=== PATIENT | male | born 1955 | race Hispanic/Latino ===

== ENCOUNTER 2017-05-02 14:25 | Inpatient (IN) | payer OTHER ==
[~2017-05-02 14:25] MED LIST: ISOVUE-370 76%-LOCM 1 ML ONE
[2017-05-02 15:12] LABS: #Basophils 0.1 thou/uL (0.0-0.2); #Eosinphils 0.1 thou/uL (0.0-0.7); #Lymphocytes 1.8 thou/uL (1.20-3.40); #Monocytes 1.3 thou/uL (0.11-0.59); #Neutrophils 15.3 thou/uL (1.40-6.50); %Basophils 0.4 % (0.0-1.0); %Eosinophils 0.7 % (0.0-10.0); %Lymphocytes 9.7 % (21.0-51.0); Hematocrit 46.8 % (42.0-52.0); Mean Platelet Volume 8.7 fL (7.4-10.4); Red Blood Cell (RBC) Count 4.86 mill/uL (4.70-6.10); White Blood Cell (WBC) Count 18.6 thou/uL (4.8-10.8)
[2017-05-02 15:31] LABS: ALT (SGPT) 17 U/L (8-55); AST (SGOT) 24 U/L (5-34); Alkaline Phosphatase 100 U/L (40-150); Anion Gap 15 mmol/L (10-20); BUN (Urea Nitrogen) 13 mg/dL (8.4-25.7); Bilirubin, Total 0.8 mg/dL (0.2-1.2); Calc. Creatinine Clearance 0 mL/min (70-130); Calcium 9.2 mg/dL (7.8-10.44); Carbon Dioxide 24 mmol/L (23-31); Chloride 101 mmol/L (98-107); Estimated GFR-MDRD 74
[2017-05-02] MEDS ORDERED: Adacel (T-DAP) 0.5 ML VIAL ONE (15:34)
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
[2017-05-02] MEDS ORDERED: Lidocaine 1% (PF) 30 ML VIAL ONE (16:24)
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
[2017-05-02] MEDS ORDERED: Ondansetron HCl/PF 4 MG/2 ML Vial IVP PRN (17:55)
[2017-05-02] MEDS ORDERED: Dextrose 50% Abboject 50 ML SYRINGE SLOW IVP PRN (17:55)
[2017-05-02] MEDS ORDERED: Dextrose 5% in Water 1,000 ML IV PRN (17:55)
[2017-05-02] MEDS ORDERED: Promethazine HCl 25 MG/ML VIAL IM PRN (17:55)
[2017-05-02] MEDS ORDERED: Rib Fracture Protocol PO SCH (17:55)
[2017-05-02] MEDS ORDERED: Ondansetron ODT 4 MG TAB PO PRN (17:55)
[2017-05-02] MEDS ORDERED: Cyclobenzaprine 10 MG TAB PO PRN (19:00)
[2017-05-02] MEDS: Sodium Chloride 0.9% 1,000 ML IV SCH (19:23)
[2017-05-02] MEDS: Famotidine 20 MG TAB PO SCH (20:38)
[2017-05-02] MEDS: Gabapentin 300 MG CAP PO SCH (20:38)
[2017-05-02] MEDS: Insulin Regular 300 UNITS/3 ML VIAL SC PRN (21:33)
[2017-05-03] MEDS: traMADol HCl 50 MG TAB PO SCH ×4 (00:01→17:21)
[2017-05-03] MEDS: Ibuprofen 800 MG TAB PO SCH ×4 (00:01→17:20)
[2017-05-03] MEDS: Acetaminophen 500 MG TAB PO SCH ×4 (00:01→17:22)
[2017-05-03] MEDS: Sodium Chloride 0.9% 1,000 ML IV SCH (00:06)
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
[2017-05-03 02:35] VITALS: BMI 30.7
[2017-05-03 05:52] LABS: #Basophils 0.1 thou/uL (0.0-0.2); #Eosinphils 0.1 thou/uL (0.0-0.7); #Lymphocytes 1.8 thou/uL (1.20-3.40); #Monocytes 1.2 thou/uL (0.11-0.59); #Neutrophils 5.4 thou/uL (1.40-6.50); %Basophils 0.6 % (0.0-1.0); %Eosinophils 0.8 % (0.0-10.0); %Lymphocytes 21.5 % (21.0-51.0); %Monocytes 13.6 % (0.0-10.0); Hematocrit 38.9 % (42.0-52.0); Red Blood Cell (RBC) Count 4.01 mill/uL (4.70-6.10); White Blood Cell (WBC) Count 8.5 thou/uL (4.8-10.8)
[2017-05-03 06:05] LABS: Anion Gap 10 mmol/L (10-20); BUN (Urea Nitrogen) 16 mg/dL (8.4-25.7); Calc. Creatinine Clearance 115 mL/min (70-130); Calcium 8.2 mg/dL (7.8-10.44); Carbon Dioxide 27 mmol/L (23-31); Chloride 103 mmol/L (98-107); Estimated GFR-MDRD 81
[2017-05-03] MEDS: Insulin Regular 300 UNITS/3 ML VIAL SC PRN ×4 (06:08→20:52)
[2017-05-03 06:38] LABS: Hemoglobin A1c 12.1 % (4.0-6.0)
[2017-05-03] MEDS: Famotidine 20 MG TAB PO SCH ×2 (08:03→20:13)
[2017-05-03] MEDS: Gabapentin 300 MG CAP PO SCH ×3 (08:03→20:13)
--- NOTE | 2017-05-03 08:04 | RAD ---
CHEST 1 VIEW: HISTORY: Chest tube. Followup. COMPARISON: 05/02/17. FINDINGS: Cardiac silhouette is magnified by projection. Pulmonary vasculature remains engorged. Left thorac ostomy tube remains in lace without recurrent pneumothorax apparent. Mild patchy bilateral airspace disease is stable. Mediastinum is midline. IMPRESSION: Stable radiographic appearance of the chest. POS: [facility]
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
[2017-05-03] MEDS ORDERED: FLU VACC QS2017-18 36 mo. & older 0.5 ML SYRINGE IM ONE (09:00)
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
[2017-05-04] MEDS: traMADol HCl 50 MG TAB PO SCH ×5 (00:26→23:44)
[2017-05-04] MEDS: Acetaminophen 500 MG TAB PO SCH ×5 (00:26→23:43)
[2017-05-04] MEDS: Ibuprofen 800 MG TAB PO SCH ×5 (00:26→23:43)
[2017-05-04] MEDS: Insulin Regular 300 UNITS/3 ML VIAL SC PRN ×4 (05:46→20:23)
--- NOTE | 2017-05-04 07:56 | RAD ---
CHEST 1 VIEW: HISTORY: Chest tube. Followup. COMPARISON: 05/03/17. FINDINGS: Cardiac silhouette remains magnified by projection. Pulmonary vasculature is less engorged than on the prior study. Patchy bibasilar atelectasis is improved. Mediastinum is midline. Left thoracost selma tube remains in place. Left rib fractures are now better visualized. No recurrent pneumothorax is apparent. Left chest wall gas is stable. IMPRESSION: Improved aeration of the lungs. POS: [facility]
[2017-05-04] MEDS: Gabapentin 300 MG CAP PO SCH ×3 (08:14→20:00)
[2017-05-04] MEDS: Famotidine 20 MG TAB PO SCH ×2 (08:14→20:00)
[2017-05-04] MEDS: Senokot S 8.6-50 MG TAB PO SCH (20:00)
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
[2017-05-05] MEDS: Acetaminophen 500 MG TAB PO SCH ×4 (05:13→23:50)
[2017-05-05] MEDS: Ibuprofen 800 MG TAB PO SCH ×4 (05:13→23:50)
[2017-05-05] MEDS: traMADol HCl 50 MG TAB PO SCH ×4 (05:13→23:51)
[2017-05-05] MEDS: Insulin Regular 300 UNITS/3 ML VIAL SC PRN ×4 (06:43→21:22)
[2017-05-05] MEDS: Gabapentin 300 MG CAP PO SCH ×3 (08:23→21:11)
[2017-05-05] MEDS: Polyethylene Glycol 3350 17 GM Packet PO SCH (08:24)
[2017-05-05] MEDS: Famotidine 20 MG TAB PO SCH ×2 (08:24→21:11)
[2017-05-05] MEDS: Senokot S 8.6-50 MG TAB PO SCH ×2 (08:24→21:11)
--- NOTE | 2017-05-05 08:24 | RAD ---
AP VIEW OF CHEST: Date: 05/05/17 INDICATION: History of chest tube placement. COMPARISON: Prior exam dated 05/04/17. IMPRESSION: Since the comparison study, the left-sided thoracostomy tube has been removed. Left basilar atelecta sis and left-sided pleural effusion remains. Left-sided rib fractures and subcutaneous emphysema is stable. No definite pneumothorax is evident. Mild subsegmental atelectasis within the right mid lung is stable. POS: [facility]
[2017-05-05] MEDS: Lisinopril 20 MG TAB PO SCH (08:35)
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
[2017-05-06] MEDS: traMADol HCl 50 MG TAB PO SCH ×2 (05:39→12:23)
[2017-05-06] MEDS: Acetaminophen 500 MG TAB PO SCH ×2 (05:39→12:23)
[2017-05-06] MEDS: Ibuprofen 800 MG TAB PO SCH ×2 (05:41→12:23)
[2017-05-06] MEDS: Insulin Regular 300 UNITS/3 ML VIAL SC PRN (06:07)
--- NOTE | 2017-05-06 08:13 | RAD ---
CHEST 1 VIEW: Date: 05/06/17 HISTORY: Chest tube. COMPARISON: Chest 1 view prior day. FINDINGS: Subcutaneous emphysema left hemithorax is decreased. Left-sided rib fractures are similar. No furthe r displacement. Small left effusion. Linear opacities left lung base. No pneumothorax. IMPRESSION: Slight interval decrease of the left chest wall subcutaneous emphysema. POS: [facility]
[2017-05-06 08:17] VITALS: TEMP 98
[2017-05-06] MEDS: Gabapentin 300 MG CAP PO SCH (08:21)
[2017-05-06] MEDS: Lisinopril 20 MG TAB PO SCH (08:21)
[2017-05-06] MEDS: Senokot S 8.6-50 MG TAB PO SCH (08:21)
[2017-05-06] MEDS: Polyethylene Glycol 3350 17 GM Packet PO SCH (08:29)
[2017-05-06 09:08] VITALS: BP 124/73
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
== END 2017-05-06 12:07 | disposition home or self-care (01) | DRG 200 ==
LOC: ERS 14:25 → SURG A 16:01
PROVIDERS: ADMIT Surgery; ATTEND Surgery
PROC: 0W9B00Z Drainage of Left Pleural Cavity with Drainage Device, Open Approach (ICD-10-PCS; principal; 2017-05-02)
DX: S27.2XXA Traumatic hemopneumothorax, initial encounter (principal); J90 Pleural effusion, not elsewhere classified; J98.11 Atelectasis; S22.42XA Multiple fractures of ribs, left side, initial encounter for closed fracture; I10 Essential (primary) hypertension; E11.9 Type 2 diabetes mellitus without complications; Z72.0 Tobacco use; G89.11 Acute pain due to trauma; T79.7XXA Traumatic subcutaneous emphysema, initial encounter
CPT/HCPCS: 32551; 36415; 36416; 70450; 71010; 71260; 72125; 74177; 80048; 80053; 83036; 85025; 90471; 90715; 93005; 94640; 96361; 96374; G0390; G8978-GP-CJ; G8979-GP-CJ; G8980-GP-CJ; G8987-GO-CI; G8988-GO-CI; G8989-GO-CI; J0360; J1815; J2001; J2270; J7620

== ENCOUNTER 2017-05-20 12:33 | Outpatient (CLI) | payer OTHER ==
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
== END 2017-05-20 12:34 | disposition home or self-care (01) ==
LOC: RAD 12:33
PROVIDERS: ATTEND Physician Assistant
DX: S27.2XXA Traumatic hemopneumothorax, initial encounter (principal); S22.49XS Multiple fractures of ribs, unspecified side, sequela; J90 Pleural effusion, not elsewhere classified; J98.11 Atelectasis
CPT/HCPCS: 71020

== ENCOUNTER 2017-05-27 08:33 | Inpatient (IN) | payer OTHER ==
[2017-05-26 15:25] VITALS: BMI 30.7
[2017-05-27 09:56] LABS: Hematocrit 47.1 % (42.0-52.0); Mean Platelet Volume 7.8 fL (7.4-10.4); Red Blood Cell (RBC) Count 4.86 mill/uL (4.70-6.10)
[2017-05-27 10:11] LABS: Anion Gap 14 mmol/L (10-20); BUN (Urea Nitrogen) 14 mg/dL (8.4-25.7); Calc. Creatinine Clearance 139 mL/min (70-130); Calcium 10.1 mg/dL (7.8-10.44); Carbon Dioxide 25 mmol/L (23-31); Chloride 102 mmol/L (98-107); Estimated GFR-MDRD Greater than 90
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
[2017-05-27] MEDS ORDERED: CEFAZOLIN/Water 2 GM/20 ML SYRINGE ONE (12:52)
[2017-05-27] MEDS ORDERED: Fentanyl 100 MCG/2 ML VIAL ONE ×2 (13:51→15:46)
[2017-05-27] MEDS ORDERED: Ketorolac Tromethamine 30 MG/ML VIAL ONE (14:08)
[2017-05-27] MEDS ORDERED: Dexamethasone 20 MG/5 ML VIAL ONE (14:08)
[2017-05-27] MEDS ORDERED: Lidocaine 2% MPF 10 ML AMP (For Epidural Use) ONE (14:08)
[2017-05-27] MEDS ORDERED: Ondansetron HCl/PF 4 MG/2 ML Vial ONE (14:08)
[2017-05-27] MEDS ORDERED: Glycopyrrolate 0.2 MG/ML 5 ML SYRINGE ONE (14:08)
[2017-05-27] MEDS ORDERED: Propofol 200 MG/20 ML VIAL ONE (14:08)
[2017-05-27] MEDS ORDERED: Ondansetron HCl/PF 4 MG/2 ML Vial IVP PRN ×2 (15:15→16:17)
[2017-05-27] MEDS ORDERED: Promethazine HCl 25 MG/ML VIAL IM PRN (15:15)
[2017-05-27] MEDS ORDERED: Promethazine HCl 25 MG/ML VIAL SLOW IVP PRN (15:15)
--- NOTE | 2017-05-27 15:50 | OP ---
PREOPERATIVE DIAGNOSIS: Retained left hemothorax. POSTOPERATIVE DIAGNOSIS: Retained left hemothorax. PROCEDURE: Thoracoscopy with evacuation of hemothorax. SURGEON: Chay Gallardo M.D. ANESTHESIA: General. ESTIMATED BLOOD LOSS: Minimal. DESCRIPTION OF THE PROCEDURE: After adequate anesthesia had been obtained, the patient was placed i n the right lateral decubitus position. Lung was decompressed and 10 trocar was then placed after a dmitting a Debra clamp into the chest. Chest was inspected and there was a small residual hemothora x at the base along the diaphragm. The upper lobe had chronic adhesions to the chest wall and these were not mobilized. The chest was irrigated with about 400 mL of saline and then suctioned out and there was no residual blood at that point. A #32 right angle chest tube was placed and the port si kwadwo were closed. The patient tolerated the procedure.
[2017-05-27] MEDS ORDERED: Fentanyl 100 MCG/2 ML VIAL SLOW IVP PRN (16:17)
[2017-05-27] MEDS ORDERED: HYDROcodone/Acetaminophen 5/325 mg Tablet PO PRN (16:17)
[2017-05-27] MEDS: Fentanyl 100 MCG/2 ML VIAL SLOW IVP PRN ×2 (16:56→17:04)
[2017-05-27] MEDS: Sodium Chloride 0.9% 1,000 ML IV SCH (17:26)
--- NOTE | 2017-05-27 18:34 | RAD ---
CHEST ONE VIEW: 05/27/17 HISTORY: Thoracotomy. COMPARISON: Chest two view same day. FINDINGS: Multiple left sided rib fractures. Small left lateral pneumothorax. Chest tube is in place. There are atelectatic changes in the right lower lobe. IMPRESSION: Interval placement of a thoracostomy tube with tube and side port within the left lower hemithorax. POS: [facility]
[2017-05-27] MEDS: Ketorolac Tromethamine 30 MG/ML VIAL IVP SCH (18:45)
[2017-05-27] MEDS: metFORMIN 500 MG TAB PO SCH ×2 (19:37→20:50)
[2017-05-27] MEDS: HYDROcodone/Acetaminophen 5/325 mg Tablet PO PRN (20:24)
[2017-05-27] MEDS: Lisinopril 10 MG TAB PO SCH (20:25)
[2017-05-27] MEDS: Gabapentin 300 MG CAP PO SCH (20:25)
[2017-05-27] MEDS: CEFAZOLIN/Water 2 GM/20 ML SYRINGE SLOW IVP SCH (20:26)
[2017-05-27] MEDS: Enoxaparin Sodium 40 MG/0.4 ML SYRINGE SC SCH (20:26)
[2017-05-27] MEDS: Insulin Regular 300 UNITS/3 ML VIAL SC PRN (20:53)
[2017-05-27] MEDS ORDERED: FLU VACC QS2017-18 36 mo. & older 0.5 ML SYRINGE IM ONE (21:00)
[2017-05-28] MEDS: Ketorolac Tromethamine 30 MG/ML VIAL IVP SCH ×5 (00:12→23:20)
[2017-05-28 04:29] LABS: #Basophils 0.1 thou/uL (0.0-0.2); #Eosinphils 0.1 thou/uL (0.0-0.7); #Lymphocytes 1.5 thou/uL (1.20-3.40); #Monocytes 1.3 thou/uL (0.11-0.59); #Neutrophils 6.8 thou/uL (1.40-6.50); %Basophils 0.6 % (0.0-1.0); %Eosinophils 0.6 % (0.0-10.0); %Lymphocytes 15.5 % (21.0-51.0); %Monocytes 13.4 % (0.0-10.0); Hematocrit 39.3 % (42.0-52.0); Mean Platelet Volume 8.4 fL (7.4-10.4); Red Blood Cell (RBC) Count 4.07 mill/uL (4.70-6.10); White Blood Cell (WBC) Count 9.7 thou/uL (4.8-10.8)
[2017-05-28 04:51] LABS: Anion Gap 11 mmol/L (10-20); BUN (Urea Nitrogen) 20 mg/dL (8.4-25.7); Calc. Creatinine Clearance 129 mL/min (70-130); Calcium 9.1 mg/dL (7.8-10.44); Carbon Dioxide 28 mmol/L (23-31); Chloride 102 mmol/L (98-107); Estimated GFR-MDRD Greater than 90
[2017-05-28] MEDS: CEFAZOLIN/Water 2 GM/20 ML SYRINGE SLOW IVP SCH ×3 (05:46→20:00)
[2017-05-28] MEDS: Lisinopril 10 MG TAB PO SCH ×2 (08:12→20:00)
[2017-05-28] MEDS: Amlodipine 5 MG TAB PO SCH (08:12)
[2017-05-28] MEDS: metFORMIN 500 MG TAB PO SCH ×2 (08:12→16:52)
[2017-05-28] MEDS: Gabapentin 300 MG CAP PO SCH ×3 (08:13→20:00)
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
[2017-05-28] MEDS: Sodium Chloride 0.9% 1,000 ML IV SCH (12:28)
[2017-05-28] MEDS: HYDROcodone/Acetaminophen 5/325 mg Tablet PO PRN (12:32)
[2017-05-28] MEDS: Insulin Regular 300 UNITS/3 ML VIAL SC PRN ×2 (12:36→16:52)
[2017-05-28] MEDS: Enoxaparin Sodium 40 MG/0.4 ML SYRINGE SC SCH (20:07)
[2017-05-29] MEDS: CEFAZOLIN/Water 2 GM/20 ML SYRINGE SLOW IVP SCH (05:26)
[2017-05-29] MEDS: Ketorolac Tromethamine 30 MG/ML VIAL IVP SCH (05:26)
[2017-05-29] MEDS: Amlodipine 5 MG TAB PO SCH (08:13)
[2017-05-29] MEDS: metFORMIN 500 MG TAB PO SCH (08:13)
[2017-05-29] MEDS: Gabapentin 300 MG CAP PO SCH (08:13)
[2017-05-29 08:14] VITALS: BP 159/74
[2017-05-29] MEDS: Lisinopril 10 MG TAB PO SCH (08:14)
[2017-05-29 08:21] VITALS: TEMP 98.3
--- NOTE | 2017-05-29 09:38 | RAD ---
PORTABLE AP CHEST X-RAY: 05/29/2017 HISTORY: Post thoracotomy. Follow-up evaluation. FINDINGS: Compared to study on 05/28/2017. Cardiac silhouette and pulmonary vasculature are within normal limits. Again noted are what appear to be left-sided rib fractures. The left-sided thoracostomy tube has been removed. No obvious pneu mothorax is seen. Increased linear densities are seen at each lung base, probably related to atelec tasis. There is no other interval change from the prior study. IMPRESSION: 1. Stable left-sided rib fractures with stable pleural-based density at the left lung base adjacent to the region of the rib fractures with associated atelectasis. 2. Interval removal of the left-sided thoracostomy tube. 3. Atelectasis at right lung base. POS: [facility]
--- NOTE | 2017-05-29 09:59 | DIS ---
HOSPITAL COURSE: The patient was admitted for left thoracoscopy which was performed. Chest tube wa s minimal for the next 2 days. The tube was removed and he needs to be discharged home to resume hi s lisinopril and metformin as well as prescription for tramadol. He is to follow up with me in 2 to 3 weeks and he still needs to obtain a family practitioner for his diabetes management.
== END 2017-05-29 08:05 | disposition home or self-care (01) | DRG 168 ==
LOC: SURG A 08:33
PROVIDERS: ADMIT Thoracic Surgery (Cardiothoracic Vascular Surgery); ATTEND Thoracic Surgery (Cardiothoracic Vascular Surgery)
PROC: 0W9B40Z Drainage of Left Pleural Cavity with Drainage Device, Percutaneous Endoscopic Approach (ICD-10-PCS; principal; 2017-05-27)
DX: J94.2 Hemothorax (principal); I10 Essential (primary) hypertension; E11.9 Type 2 diabetes mellitus without complications
CPT/HCPCS: 36415; 36416; 71010; 71020; 80048; 85025; 85027; J1100; J1650; J1885; J2001; J2405; J2704; J3010

== ENCOUNTER 2017-06-17 13:13 | Outpatient (CLI) | payer OTHER ==
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
== END 2017-06-17 13:14 | disposition home or self-care (01) ==
LOC: RAD 13:13
PROVIDERS: ATTEND Thoracic Surgery (Cardiothoracic Vascular Surgery)
DX: J94.2 Hemothorax (principal); S22.42XA Multiple fractures of ribs, left side, initial encounter for closed fracture
CPT/HCPCS: 71020

== ENCOUNTER 2017-11-12 05:30 | Inpatient (IN) | payer SELFPAY ==
[2017-11-12] MEDS ORDERED: Calcium Chloride 1 GM/10 ML Abboject SYRINGE ONE (05:57)
[2017-11-12] MEDS ORDERED: Sodium Bicarb 50 MEQ/50 ML Abboject 8.4% SYRINGE ONE ×2 (05:57→13:10)
[2017-11-12] MEDS ORDERED: Dextrose 50% Abboject 50 ML SYRINGE ONE (05:57)
[2017-11-12] MEDS ORDERED: Insulin Regular 300 UNITS/3 ML VIAL ONE (05:57)
[2017-11-12] MEDS ORDERED: Dextrose 50% Abboject 50 ML SYRINGE SLOW IVP PRN ×2 (06:17→09:16)
[2017-11-12] MEDS ORDERED: Dextrose 5% in Water 1,000 ML IV PRN ×2 (06:17→09:16)
[2017-11-12] MEDS ORDERED: HumaLOG 300 UNITS/3 ML VIAL SC PRN ×2 (06:17→09:16)
[2017-11-12 06:20] LABS: Mean Corpuscular HGB CONC 34.1 g/dL (32.0-36.0); Mean Corpuscular Hemoglobin 32.2 pg (27.0-31.0); Mean Corpuscular Volume 94.4 fl (80.0-94.0); Mean Platelet Volume 9.2 fL (7.4-10.4); Platelet Count 329 thou/uL (130-400); Red Blood Cell (RBC) Count 4.03 mill/uL (4.70-6.10); White Blood Cell (WBC) Count 14.6 thou/uL (4.8-10.8)
[2017-11-12 06:28] LABS: CKMB 6.1 ng/mL (0-6.6); Troponin I 0.028 ng/mL (< 0.028)
[2017-11-12 06:36] LABS: Band 4 % (5-11); Lymphocytes 4 % (21-51); MDiff Complete? YES; Monocytes 11 % (0-10); Neutrophil 81 % (42-75)
[2017-11-12 06:43] LABS: Bilirubin Negative (Negative); Blood, Urine Moderate (Negative); Clarity CLEAR (Clear); Glucose, Urine (Dipstick) 250 mg/dL (Negative); Leukocyte Negative (Negative); Nitrite Negative (Negative); Protein, Urine (Dipstick) Negative (Neg-Trace); Specific Gravity, Urine 1.012 (1.002-1.036); Urobilinogen 0.2 mg/dL (0.2-1.0); pH, Urine 5.5 (5.0-9.0)
[2017-11-12 06:44] LABS: BUN (Urea Nitrogen) 186 mg/dL (8.4-25.7)
[2017-11-12] MEDS ORDERED: Piperacillin/Tazobactam 4.5 GM in Sodium Chloride 0.9% 100 ML IVPB SCH (06:45)
[2017-11-12] MEDS ORDERED: Lidocaine 1% w/Epinephrine 1:100K 20 ML VIAL ONE (06:48)
[2017-11-12 07:07] LABS: ALT (SGPT) 16 U/L (8-55); AST (SGOT) 15 U/L (5-34); Albumin 3.7 g/dL (3.4-4.8); Alkaline Phosphatase 70 U/L (40-150); Bilirubin, Total 0.3 mg/dL (0.2-1.2); Calc. Creatinine Clearance 0 mL/min (70-130); Calcium 8.7 mg/dL (7.8-10.44); Chloride 91 mmol/L (98-107); Estimated GFR-MDRD 2; Glucose 279 mg/dL (80-115); Lipase 34 U/L (8-78); Protein, Total 6.7 g/dL (5.8-8.1); Sodium 133 mmol/L (136-145)
[2017-11-12 07:12] LABS: Carbon Dioxide Less than 8 mmol/L (23-31); Potassium 9.2 mmol/L (3.5-5.1)
[2017-11-12 07:15] LABS: Bacteria/HPF None Seen HPF (None Seen); Hyaline Casts/LPF 0-3 HYALINE CAST LPF (0-3 Hyaline); Pathc Cast-AUWi Flag 0.14 (0-2.49); Squamous Epithelial None Seen HPF (0-3); WBC/HPF 0-3 HPF (0-3); Yeast-AUWi Flag 15.9 (0-25.0)
[2017-11-12 08:13] LABS: HBSAg Index 0.21 S/CO (0-0.99); Hep B Surf Ag Non-Reactive S/CO (NonReactive)
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
--- NOTE | 2017-11-12 08:47 | OP ---
PREOPERATIVE DIAGNOSES: Acute renal failure, hyperkalemia, in need of emergent hemodialysis catheter . POSTOPERATIVE DIAGNOSES: Acute renal failure, hyperkalemia, in need of emergent hemodialysis cathete r. PROCEDURE PERFORMED: Right femoral Trialysis catheter. SURGEON: Dr. Zach Marr. ANESTHESIA: 1% Xylocaine. DESCRIPTION OF PROCEDURE: At the patient's bedside in the emergency room, his right groin was clippe d of hair, prepared with ChloraPrep, draped in routine fashion. Seldinger technique used to place a Trialysis catheter placing the J-wire into the femoral vein, placing a smaller and medium sized dila tors and then removed and distal port of the Trialysis catheter placed with J-wire into the femoral v ein. J-wire removed. Catheter secured with 2 interrupted sutures of 3-0 silk. Sterile dressing quincy lied. Each port aspirated blood and flushed with saline solution.
--- NOTE | 2017-11-12 09:08 | RAD ---
CHEST ONE VIEW: History: Chest surgery. Follow up. Comparison: 05-29-17 FINDINGS: Cardiac silhouette is magnified by projection. Pulmonary vasculature remains upper limits of normal. Mediastinum is midline. No confluent airspace consolidation or evidence of pneumothorax. Rib fracture s are again demonstrated. IMPRESSION: Stable post-traumatic appearance of the chest. POS: [facility]
[2017-11-12] MEDS ORDERED: Acetaminophen 500 MG TAB PO PRN (09:16)
[2017-11-12] MEDS ORDERED: Ondansetron HCl/PF 4 MG/2 ML Vial IVP PRN (09:16)
[2017-11-12] MEDS ORDERED: Ondansetron ODT 4 MG TAB PO PRN (09:16)
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
[2017-11-12 10:26] VITALS: BMI 35.2
[2017-11-12 10:27] LABS: Lactic Acid 3.1 mmol/L (0.5-2.2)
[2017-11-12] MEDS ORDERED: Prevnar 13-Val Conj/PF 0.5 ML SYRINGE IM ONE (10:45)
[2017-11-12] MEDS ORDERED: Heparin 10,000 UNITS/ 10 ML VIAL ONE (12:00)
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
[2017-11-12 16:47] LABS: Anion Gap 30 mmol/L (10-20); BUN (Urea Nitrogen) 99 mg/dL (8.4-25.7); Calc. Creatinine Clearance 9 mL/min (70-130); Calcium 8.7 mg/dL (7.8-10.44); Carbon Dioxide 17 mmol/L (23-31); Chloride 97 mmol/L (98-107); Estimated GFR-MDRD 5; Glucose 162 mg/dL (80-115); Potassium 5.2 mmol/L (3.5-5.1); Sodium 139 mmol/L (136-145)
--- NOTE | 2017-11-12 17:05 | ULT ---
ULTRASOUND RETROPERITONEUM COMPLETE: (RENAL) 11/12/17 HISTORY: 62-year-old male with provided history of "acute renal failure." FINDINGS: The right kidney measures 12 x 6 x 6 cm. The left kidney measures 12.5 x 6 x 6.5 cm. Both kidneys h ave normal cortical thickness and normal cortical echogenicity. There is no hydronephrosis. There i s a Martin catheter in an empty urinary bladder. The Martin catheter traverses an enlarged prostate gla nd. IMPRESSION: 1) Normal sonographic appearance of the kidneys. 2) Martin catheter within empty bladder. 3) Enlarged prostate gland. ioana pritchard POS: EILEEN
--- NOTE | 2017-11-12 18:34 | ULT ---
ULTRASOUND BILATERAL UPPER EXTREMITY VENOUS MAPPIN11/12/17 HISTORY: 62-year-old male. For this study, a history of "end-stage renal disease" is given. For the renal ultr asound of the same day, a history of "acute renal failure" was given. FINDINGS: Caliber of all veins is given in mm: RIGHT UPPER EXTREMITY BRACHIAL ARTERY: 5.5 mm RADIAL ARTERY: 2 mm ULNAR ARTERY: 1.5 mm CEPHALIC VEIN Proximal Arm: 2 mm Mid Arm: 1.5 mm Distal Arm: 1.5 mm Antecubital Fossa: 2.5 mm Proximal Forearm: 1 mm Mid Forearm: 1 mm Distal Forearm: 1.5 mm BASILIC VEIN Proximal Arm: 3.5 mm Mid Arm: 3 mm Distal Arm: 3 mm Antecubital Fossa: 1.5 mm Forearm: Not visualized LEFT UPPER EXTREMITY BRACHIAL ARTERY: 5.5 mm RADIAL ARTERY: 2 mm ULNAR ARTERY: 1.5 mm CEPHALIC VEIN Proximal Arm: 2 mm Mid Arm: 2.5 mm Distal Arm: 2.5 mm Antecubital Fossa: 1.5 mm Proximal Forearm: 0.5 mm Mid Forearm: 1 mm Distal Forearm: 0.5 mm BASILIC VEIN Proximal Arm: 4 mm Mid Arm: 3 mm Distal Arm: 2 mm Antecubital Fossa: 2 mm Forearm: Not visualized. IMPRESSION: The basilic vein in the right arm is consistently 3 mm in caliber. POS: NASIM
[2017-11-12] MEDS: Famotidine 20 MG TAB PO SCH (20:12)
--- NOTE | 2017-11-12 23:57 | CON ---
DATE OF CONSULTATION: 11/12/2017 CONSULTING PHYSICIAN: Dr. Trujillo. REASON FOR CONSULTATION: Acute kidney injury and hyperkalemia. REASON FOR ADMISSION: Abdominal pain, nausea and vomiting. HISTORY OF PRESENT ILLNESS: A 62-year-old male with history of type 2 diabetes, and hypertension, wh o came to the hospital with abdominal pain, nausea, vomiting, and was found to have potassium of arou nd 10 and urine retention. He has had a Martin and removal of almost 2 liters of urine. Nephrology i s consulted because of potassium 9.2. The patient denies any chest pain, no shortness of breath when I saw him this morning. No fever or chills. No skin rash but was having nausea and abdominal pain. He was also being evaluated by Urology and plan is to continue Martin catheter. PAST MEDICAL HISTORY: Positive for tobacco use, type 2 diabetes, hypertension, urinary retention, hy perlipidemia. PAST SURGICAL HISTORY: Thoracostomy. HOME MEDICATIONS: Amlodipine, gabapentin, Advil, lisinopril, metformin, tramadol. ALLERGIES: No known drug allergies. FAMILY HISTORY: Positive for diabetes. SOCIAL HISTORY: Half pack per day smoking. No alcohol or illicit drug abuse. REVIEW OF SYSTEMS: The following complete review of systems was negative, unless otherwise mentioned in the HPI or below: Constitutional: Weight loss or gain, ability to conduct usual activities. Sk in: Rash, itching. Eyes: Double vision, pain. ENT/Mouth: Nose bleeding, neck stiffness, pain, te nderness. Cardiovascular: Palpitations, dyspnea on exertion, orthopnea. Respiratory: Shortness of breath, wheezing, cough, hemoptysis, fever or night sweats. Gastrointestinal: Poor appetite, abdom inal pain, heartburn, nausea, vomiting, constipation, or diarrhea. Genitourinary: Urgency, frequenc y, dysuria, nocturia. Musculoskeletal: Pain, swelling. Neurologic/Psychiatric: Anxiety, depressio n. Allergy/Immunologic: Skin rash, bleeding tendency. PHYSICAL EXAMINATION: GENERAL: This is a well-built male, in no apparent distress. VITAL SIGNS: Temperature 97.9, pulse 70, respiratory rate 16, blood pressure 154/64. HEENT: Atraumatic, normocephalic. Oral mucosa is moist. NECK: Supple, no masses. CARDIOVASCULAR: S1, S2 heard. Rate and rhythm regular. RESPIRATORY: Clear. GASTROINTESTINAL: Abdomen is soft. MUSCULOSKELETAL: 1+ edema. DERMATOLOGIC: No rash. NEUROLOGIC: Alert, awake. PSYCHIATRIC: Mood and affect normal. LABORATORY DATA: Hemoglobin is 13.8, potassium is 9.2 down to 5.2 after dialysis today, bicarbonate less than 17, BUN is 99 and 11.5 from 186 and 20. Lactate was 3.1. ASSESSMENT AND PLAN: 1. Acute kidney injury on chronic kidney disease, most likely secondary to retention. The patient n eeds emergent dialysis for hyperkalemia. Might need another dialysis tomorrow. 2. Acidosis secondary to retention. 3. Hemoconcentration. Continue IV fluids. 4. Renal retention. Follow with Urology. Rule out infection. Continue supportive care including IV fluids and Martin catheter. Will have dialy sis for hyperkalemia. Limit potassium in the diet and we will follow. Thank you for the consult.
[2017-11-13 05:48] LABS: Hemoglobin A1c 6.2 % (4.0-6.0)
[2017-11-13 05:58] LABS: ALT (SGPT) 16 U/L (8-55); AST (SGOT) 16 U/L (5-34); Albumin 3.8 g/dL (3.4-4.8); Alkaline Phosphatase 75 U/L (40-150); Anion Gap 25 mmol/L (10-20); BUN (Urea Nitrogen) 76 mg/dL (8.4-25.7); Bilirubin, Total 0.6 mg/dL (0.2-1.2); Calc. Creatinine Clearance 15 mL/min (70-130); Calcium 8.9 mg/dL (7.8-10.44); Carbon Dioxide 19 mmol/L (23-31); Chloride 103 mmol/L (98-107); Estimated GFR-MDRD 8; Globulin 2.9 g/dL (2.4-3.5); Glucose 148 mg/dL (80-115); Potassium 4.6 mmol/L (3.5-5.1); Protein, Total 6.7 g/dL (5.8-8.1); Sodium 142 mmol/L (136-145)
[2017-11-13 06:15] LABS: Band 1 % (5-11); Hemoglobin 12.5 g/dL (14.0-18.0); Lymphocytes 9 % (21-51); MDiff Complete? YES; Mean Corpuscular HGB CONC 34.3 g/dL (32.0-36.0); Mean Corpuscular Hemoglobin 31.7 pg (27.0-31.0); Mean Corpuscular Volume 92.6 fl (80.0-94.0); Mean Platelet Volume 8.1 fL (7.4-10.4); Monocytes 18 % (0-10); Neutrophil 72 % (42-75); PLT Morphology Comment Appears Adequate; Platelet Count 277 thou/uL (130-400); RBC Distribution Width 13.9 % (11.5-14.5); RBC Morphology Normal; Red Blood Cell (RBC) Count 3.94 mill/uL (4.70-6.10); White Blood Cell (WBC) Count 10.6 thou/uL (4.8-10.8)
--- NOTE | 2017-11-13 10:53 | PRG ---
DATE OF SERVICE: 11/13/2017 SUBJECTIVE: The patient is doing well, sitting up, feeling significantly better than yesterday. He has had no problems overnight and the catheter has been draining well. OBJECTIVE: VITAL SIGNS: Vital signs remains stable with hypertension, satting 100% with heart rate in the 70s. He has had more than 5 liters out in the past 24 hours and is draining clear yellow urine. LABORATORY DATA: Reveal a white count that came down to 10.6. BUN and creatinine have come down to 76 and 7.06 and that after dialysis had brought it down to 99 and 11.52. A renal ultrasound was unremarkable. ASSESSMENT: We have a 62-year-old male with acute renal failure, probably multifactorial, but definitely from BPH and obstruction with an indwelling Martin draining adequately with resultant diuresis, much improved than upon admission. We reviewed continuing tamsulosin twice a day and finasteride. The indwelling catheter should stay at least a couple weeks which I anticipate that he will be able to be discharged with this. I left instructions regarding Martin catheter care--as well as removal. He can have a large bag for night and leg bag for day if desires. He can follow up as an outpatient for a voiding trial. RAJAN
[2017-11-13] MEDS: cloNIDine 0.1 MG TAB PO PRN (11:06)
[2017-11-13] MEDS: hydrALAZINE 20 MG/ML VIAL SLOW IVP PRN (11:06)
[2017-11-13] MEDS: HumaLOG 300 UNITS/3 ML VIAL SC PRN ×2 (11:07→15:41)
[2017-11-13] MEDS: Sodium Chloride 0.45% 1,000 ML IV SCH ×3 (13:25→20:28)
[2017-11-13] MEDS ORDERED: Sodium Chloride 0.9% 1,000 ML IV SCH (14:30)
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
--- NOTE | 2017-11-13 19:43 | PRG ---
DATE OF SERVICE: 11/13/2017 NEPHROLOGY PROGRESS NOTE SUBJECTIVE: Patient was seen and examined at bedside and overnight events noted. Patient denies any shortness of breath or chest pain or palpitation. No history of nausea or vomiting or diarrhea or f ever or chills or cramps. OBJECTIVE: GENERAL: This is a well-built male in no apparent distress. VITAL SIGNS: Temperature 98.5, pulse 60, respiratory rate 18, blood pressure 158/66. HEENT: Atraumatic, normocephalic. Oral mucosa is moist. NECK: Supple. CARDIOVASCULAR: S1, S2 heard. Rate and rhythm regular. RESPIRATORY: Clear to auscultation. GASTROINTESTINAL: Abdomen is soft. MUSCULOSKELETAL: No tenderness. No edema. DERMATOLOGIC: No skin rash. NEUROLOGIC: Alert and awake and oriented x3. No focal neurologic deficits. Moving all the extremiti es. PSYCHIATRIC: Mood and affect normal. LABORATORY DATA: Potassium is 4.6, BUN is 76, creatinine 7.0. ASSESSMENT AND PLAN: 1. Acute kidney injury with chronic kidney disease secondary to obstruction. Creatinine is getting better. Continue on hydration. Would recommend half NS at 75 mL per hour. 2. Acidosis. 3. Edema, controlled. 4. Urinary retention. 5. Hyperkalemia, much better. 6. Plan is to monitor renal function and continue Martin and follow with Urology.
[2017-11-13] MEDS: Famotidine 20 MG TAB PO SCH (20:27)
--- NOTE | 2017-11-13 20:51 | PDOC.PN ---
- Subjective Encounter Start Date: 11/13/17 Encounter Start Time: 18:00 Subjective: f/u for acute urinary retention, MATILDE and severe hyperkalemia requiring -: emergent HD. Overall feeling much better and no abd pain or SOB. -: Tolerated HD. Good appetite. No CP. - Objective Resuscitation Status: Resuscitation Status FULL:Full Resuscitation MAR Reviewed: Yes Vital Signs & Weight: Vital Signs (12 hours) Temp Pulse Resp BP Pulse Ox 11/13/17 20:00 99.6 F 61 18 100 11/13/17 15:50 98.5 F 11/13/17 11:59 98.1 F 11/13/17 11:06 80 182/67 H 11/13/17 10:52 98.1 F Weight Weight 215 lb 2.738 oz Most Recent Monitor Data Heart Rate from ECG 57 NIBP 155/61 NIBP BP-Mean 89 Respiration from ECG 17 SpO2 99 I&O: 11/12/17 11/13/17 11/14/17 06:59 06:59 06:59 Intake Total 1000 4331 Output Total 5480 2730 Balance -4480 1601 Result Diagrams: 11/13/17 05:25 11/13/17 05:25 Additional Labs: Accuchecks 11/13/17 11/13/17 15:40 11:01 POC Glucose 167 H 191 H Microbiology 11/12/17 06:18 Urine perales catheter Urine Culture - Preliminary Staphylococcus species 11/12/17 06:00 Venous blood - Right Arm Blood Culture - Preliminary Specimen has been received and culture in progress. No Growth to date. 11/12/17 05:50 Venous blood - Left Arm Blood Culture - Preliminary Specimen has been received and culture in progress. No Growth to date. Laboratory Tests 11/12/17 11/12/17 11/12/17 05:50 06:06 06:38 WBC 14.6 H Hgb 13.0 L Neutrophils % (Manual) 81 H Potassium 9.2 H* Creatinine 20.78 H Hemoglobin A1c Hep Bs Antigen Non-Reactive 11/12/17 11/13/17 16:14 05:25 WBC Hgb Neutrophils % (Manual) Potassium 5.2 H Creatinine 11.52 H Hemoglobin A1c 6.2 H Hep Bs Antigen Radiology Reviewed by me: Yes (2D echo - EF 55%, diast dysfxn) EKG Reviewed by me: Yes (Tele - SR) Phys Exam - Physical Examination Constitutional: NAD alert, smiling HEENT: PERRLA, moist MMs, sclera anicteric, oral pharynx no lesions Neck: no nodes, no JVD, supple Respiratory: no wheezing, no rales, no rhonchi, clear to auscultation bilateral Cardiovascular: RRR, no significant murmur, no rub, gallop Gastrointestinal: soft, non-tender, no distention, positive bowel sounds Musculoskeletal: no edema, pulses present Neurological: non-focal, normal sensation, moves all 4 limbs Psychiatric: normal affect, A&O x 3 Skin: no rash, normal turgor, cap refill <2 seconds Deviation from normal: Perales catheter with clear urine Dx/Plan (1) Acute hyperkalemia Code(s): E87.5 - HYPERKALEMIA Status: Acute Comment: Improved after emergent HD, continue serial monitoring on telemetry (2) MATILDE (acute kidney injury) Code(s): N17.9 - ACUTE KIDNEY FAILURE, UNSPECIFIED Status: Acute Comment: s/ p emergent HD, creatinine improving, suspect recovery of renal function with supportive measures, avoid nephrotoxic meds and contrast media (3) Urinary retention Code(s): R33.9 - RETENTION OF URINE, UNSPECIFIED Status: Acute Comment: s/p decompression with Perales catheter, appreciate Urology assistance, Flomax and Proscar (4) Metabolic acidosis Code(s): E87.2 - ACIDOSIS Status: Acute Comment: Improved with correction of MATILDE and metabolic process, continue to monitor trend (5) Lactic acidosis Code(s): E87.2 - ACIDOSIS Status: Acute Comment: Improved, slow recovery given profound MATILDE (6) DM II (diabetes mellitus, type II), controlled Code(s): E11.9 - TYPE 2 DIABETES MELLITUS WITHOUT COMPLICATIONS Status: Chronic Comment: Hgb A1C 6.2, ISS, serial accuchecks - 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
[2017-11-14] MEDS: Sodium Chloride 0.45% 1,000 ML IV SCH ×4 (03:07→23:36)
[2017-11-14] MEDS: cloNIDine 0.1 MG TAB PO PRN ×3 (03:07→16:05)
[2017-11-14 04:54] LABS: Band 1 % (5-11); Eosinophils 1 % (0-10); Lymphocytes 27 % (21-51); MDiff Complete? YES; Mean Corpuscular HGB CONC 33.3 g/dL (32.0-36.0); Mean Corpuscular Hemoglobin 31.1 pg (27.0-31.0); Mean Corpuscular Volume 93.5 fl (80.0-94.0); Mean Platelet Volume 7.8 fL (7.4-10.4); Monocytes 10 % (0-10); Neutrophil 61 % (42-75); PLT Morphology Comment Appears Adequate; Platelet Count 257 thou/uL (130-400); RBC Distribution Width 13.4 % (11.5-14.5); Red Blood Cell (RBC) Count 3.86 mill/uL (4.70-6.10); White Blood Cell (WBC) Count 8.9 thou/uL (4.8-10.8)
[2017-11-14 05:23] LABS: ALT (SGPT) 14 U/L (8-55); AST (SGOT) 11 U/L (5-34); Albumin 3.4 g/dL (3.4-4.8); Alkaline Phosphatase 68 U/L (40-150); Anion Gap 11 mmol/L (10-20); BUN (Urea Nitrogen) 37 mg/dL (8.4-25.7); Bilirubin, Total 0.8 mg/dL (0.2-1.2); Calc. Creatinine Clearance 42 mL/min (70-130); Calcium 8.7 mg/dL (7.8-10.44); Carbon Dioxide 25 mmol/L (23-31); Chloride 104 mmol/L (98-107); Estimated GFR-MDRD 27; Globulin 2.6 g/dL (2.4-3.5); Glucose 147 mg/dL (80-115); Potassium 3.8 mmol/L (3.5-5.1); Sodium 136 mmol/L (136-145)
[2017-11-14] MEDS: Finasteride 5 MG TAB PO SCH (08:44)
[2017-11-14] MEDS: Tamsulosin HCl 0.4 MG CAP PO SCH (08:44)
[2017-11-14] MEDS: HumaLOG 300 UNITS/3 ML VIAL SC PRN (11:45)
--- NOTE | 2017-11-14 12:28 | PRG ---
DATE OF SERVICE: 11/14/2017 He says he is feeling better. PHYSICAL EXAMINATION: VITAL SIGNS: He is afebrile, heart rate 60, blood pressure 170/70. LUNGS: Lungs are clear. HEART: Regular rhythm. ABDOMEN: Abdomen is soft. Intake and output is positive 2806. His urine output looking at the hourly's has dropped down as low as 100 mL in an hour, so we will dec rease his IV fluids. IMPRESSION: 1. Nephrogenic diabetes insipidus. 2. Renal failure associated with bladder outlet obstruction, now with a Martin. PLAN: Transfer out. Continue to monitor urine intake and output, gradually decrease his IV fluids. Monitor his renal function. In regards to his renal failure. His creatinine is down to 2.4 with his positive fluid balance. His creatinine was 20 when he came in. His potassium was 9, potassium now is 3.8. It is amazing that catalina richards survived this. He is stable to move out of the Critical Care Unit.
--- NOTE | 2017-11-14 13:27 | PRG ---
DATE OF SERVICE: 11/14/2017 SUBJECTIVE: Patient was seen and examined at bedside and overnight events noted. Patient denies any shortness of breath or chest pain or palpitation. No history of nausea or vomitin g or diarrhea or fever or chills or cramps. OBJECTIVE: GENERAL: This is a well-built male, in no apparent distress. VITAL SIGNS: Temperature 98.3, pulse 59, respiratory rate 18, blood pressure 173/86. HEENT: Atraumatic, normocephalic. Oral mucosa is moist NECK: Supple. CARDIOVASCULAR: S1 and S2 heard. Rate and rhythm regular. RESPIRATORY: Clear to auscultation. GASTROINTESTINAL: Abdomen is soft. MUSCULOSKELETAL: No tenderness. No edema. DERMATOLOGIC: No skin rash. NEUROLOGIC: Alert and awake and oriented x3. No focal neurologic deficits. Moving all the extremit ies. PSYCHIATRIC: Mood and affect normal. LABORATORY DATA: Potassium is 3.2, BUN 37, creatinine is 2.4. ASSESSMENT AND PLAN: 1. Acute kidney injury on chronic kidney disease secondary to obstruction much better. 2. Edema, controlled. 3. Acidosis, stable. 4. Urinary retention. 5. Hyperkalemia. Overall, renal function is better. We will follow.
--- NOTE | 2017-11-14 16:25 | PDOC.PN ---
- Subjective Encounter Start Date: 11/14/17 Encounter Start Time: 16:20 Subjective: f/u for MATILDE, urinary retention, severe hyperkalemia s/p emergent HD. -: Overall feels much better. No fever, SOB. Continues Perales catheter -: drainage with clear urine. - Objective Resuscitation Status: Resuscitation Status FULL:Full Resuscitation MAR Reviewed: Yes Vital Signs & Weight: Vital Signs (12 hours) Temp Pulse Resp BP BP Pulse Ox 11/14/17 16:05 181/84 H 11/14/17 15:59 97.9 F 58 L 20 181/84 H 97 11/14/17 12:20 97.8 F 63 18 97 11/14/17 12:16 97.8 F 63 18 171/68 H 97 11/14/17 11:00 97.6 F 11/14/17 08:43 190/82 H 11/14/17 08:00 98.3 F 61 16 11/14/17 07:08 98 Weight Weight 213 lb 6.519 oz Most Recent Monitor Data Heart Rate from ECG 60 NIBP 151/68 NIBP BP-Mean 109 Respiration from ECG 17 SpO2 100 I&O: 11/13/17 11/14/17 11/15/17 06:59 06:59 06:59 Intake Total 1000 7636 1634 Output Total 5480 4830 1200 Balance -4480 2806 434 Result Diagrams: 11/14/17 04:30 11/14/17 04:30 Additional Labs: Accuchecks 11/14/17 11/14/17 11/14/17 16:15 11:44 07:46 POC Glucose 135 H 155 H 130 H 11/13/17 20:32 POC Glucose 176 H Microbiology 11/12/17 06:18 Urine perales catheter Urine Culture - Final Staphylococcus epidermidis 11/12/17 06:18 Urine perales catheter Urine Culture - Preliminary Staphylococcus species 11/12/17 06:00 Venous blood - Right Arm Blood Culture - Preliminary Specimen has been received and culture in progress. No Growth to date. 11/12/17 06:00 Venous blood - Right Arm Blood Culture - Preliminary NO GROWTH AT 48 HOURS 11/12/17 05:50 Venous blood - Left Arm Blood Culture - Preliminary Specimen has been received and culture in progress. No Growth to date. 11/12/17 05:50 Venous blood - Left Arm Blood Culture - Preliminary NO GROWTH AT 48 HOURS Laboratory Tests 11/12/17 11/12/17 11/12/17 05:50 06:06 06:38 WBC 14.6 H Hgb 13.0 L Neutrophils % (Manual) 81 H Potassium 9.2 H* Creatinine 20.78 H Hemoglobin A1c Hep Bs Antigen Non-Reactive 11/12/17 11/13/17 11/13/17 16:14 05:25 05:25 WBC Hgb Neutrophils % (Manual) Potassium 5.2 H Creatinine 11.52 H 7.06 H Hemoglobin A1c 6.2 H Hep Bs Antigen Radiology Reviewed by me: Yes (2D echo -EF 60-65%, diast dysfunction) Phys Exam - Physical Examination Constitutional: NAD HEENT: PERRLA, moist MMs, sclera anicteric, oral pharynx no lesions Neck: no nodes, no JVD, supple Respiratory: no wheezing, no rales, no rhonchi, clear to auscultation bilateral Cardiovascular: RRR, no significant murmur, no rub, gallop Gastrointestinal: soft, non-tender, no distention, positive bowel sounds Musculoskeletal: no edema, pulses present Neurological: non-focal, normal sensation, moves all 4 limbs Lymphatic: no nodes Psychiatric: normal affect, A&O x 3 Skin: no rash, normal turgor, cap refill <2 seconds Dx/Plan (1) Acute hyperkalemia Code(s): E87.5 - HYPERKALEMIA Status: Acute Comment: Improved after emergent HD, continue serial monitoring on telemetry (2) MATILDE (acute kidney injury) Code(s): N17.9 - ACUTE KIDNEY FAILURE, UNSPECIFIED Status: Acute Comment: s/ p emergent HD, creatinine improving, suspect recovery of renal function with supportive measures, avoid nephrotoxic meds and contrast media, continued improvement with decompression using Perales, follow trend, likely will avoid retirement HD (3) Urinary retention Code(s): R33.9 - RETENTION OF URINE, UNSPECIFIED Status: Acute Comment: s/p decompression with Perales catheter, appreciate Urology assistance, Flomax and Proscar (4) Metabolic acidosis Code(s): E87.2 - ACIDOSIS Status: Acute Comment: Improved with correction of MATILDE and metabolic process, continue to monitor trend (5) Lactic acidosis Code(s): E87.2 - ACIDOSIS Status: Acute Comment: Improved, slow recovery given profound MATILDE (6) DM II (diabetes mellitus, type II), controlled Code(s): E11.9 - TYPE 2 DIABETES MELLITUS WITHOUT COMPLICATIONS Status: Chronic Comment: Hgb A1C 6.2, ISS, serial accuchecks - 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
[2017-11-14] MEDS: Famotidine 20 MG TAB PO SCH (20:57)
[2017-11-14] MEDS: hydrALAZINE 20 MG/ML VIAL SLOW IVP PRN (21:04)
[2017-11-15 06:10] LABS: Anion Gap 12 mmol/L (10-20); BUN (Urea Nitrogen) 23 mg/dL (8.4-25.7); Calc. Creatinine Clearance 79 mL/min (70-130); Carbon Dioxide 23 mmol/L (23-31); Chloride 104 mmol/L (98-107); Estimated GFR-MDRD 53; Glucose 161 mg/dL (80-115); Potassium 3.8 mmol/L (3.5-5.1); Sodium 135 mmol/L (136-145)
[2017-11-15] MEDS: Finasteride 5 MG TAB PO SCH (09:17)
[2017-11-15] MEDS: Tamsulosin HCl 0.4 MG CAP PO SCH (09:17)
--- NOTE | 2017-11-15 10:28 | PRG ---
DATE OF SERVICE: 11/15/2017 SUBJECTIVE: The patient is doing well, no acute complaints. OBJECTIVE: VITAL SIGNS: Temperature 98.1, pulse 66, respiration 16, O2 sat 92%, blood pressure 173/80. HEENT: Unremarkable. NECK: No JVD. CHEST: Clear. CARDIAC: S1 and S2 regular. ABDOMEN: Soft. EXTREMITIES: No edema. LABORATORY DATA: Sodium 135, potassium 3.8, chloride 104, CO2 23, BUN 22, creatinine 1.4, glucose 16 1. ASSESSMENT: 1. Nephrogenic diabetes insipidus, which has resolved. 2. Acute renal failure, which has resolved. PLAN: Dialysis catheter, it looks like he can be pulled, discontinuation of the Martin catheter, will not take place for a couple of weeks due to prostatic hypertrophy and bladder outlet obstruction. T his is being followed by Dr. Obrien from Urology. Of note, the patient grew out Staphylococcus irineoe renny from his urine culture, currently not on antibiotics. I will leave this up to Urology and Int [facility].
[2017-11-15] MEDS: Sodium Chloride 0.45% 1,000 ML IV SCH (14:22)
--- NOTE | 2017-11-15 15:23 | PDOC.PN ---
- Subjective Encounter Start Date: 11/15/17 Encounter Start Time: 15:15 Subjective: f/u for MATILDE and bladder outlet obstruction initially requiring HD due to -: hyperkalemia. Overall improved with current Perales drainage. Feels great -: overall. - Objective Resuscitation Status: Resuscitation Status FULL:Full Resuscitation MAR Reviewed: Yes Vital Signs & Weight: Vital Signs (12 hours) Temp Pulse Resp BP BP Pulse Ox 11/15/17 12:20 98.1 F 64 20 177/89 H 97 11/15/17 09:23 65 173/80 H 11/15/17 07:20 98.1 F 66 16 197/92 H 96 11/15/17 03:41 97.4 F L 67 20 178/101 H 97 Weight Weight 221 lb 4.8 oz Most Recent Monitor Data Heart Rate from ECG 60 NIBP 151/68 NIBP BP-Mean 109 Respiration from ECG 17 SpO2 100 I&O: 11/14/17 11/15/17 11/16/17 06:59 06:59 06:59 Intake Total 7636 3234 Output Total 4830 3175 Balance 2806 59 Result Diagrams: 11/14/17 04:30 11/15/17 05:47 Additional Labs: Accuchecks 11/15/17 11/15/17 11/14/17 12:23 05:40 20:16 POC Glucose 128 H 137 H 151 H 11/14/17 16:15 POC Glucose 135 H Microbiology 11/12/17 06:18 Urine perales catheter Urine Culture - Final Staphylococcus epidermidis 11/12/17 06:18 Urine perales catheter Urine Culture - Preliminary Staphylococcus species 11/12/17 06:00 Venous blood - Right Arm Blood Culture - Preliminary Specimen has been received and culture in progress. No Growth to date. 11/12/17 06:00 Venous blood - Right Arm Blood Culture - Preliminary NO GROWTH AT 48 HOURS 11/12/17 05:50 Venous blood - Left Arm Blood Culture - Preliminary Specimen has been received and culture in progress. No Growth to date. 11/12/17 05:50 Venous blood - Left Arm Blood Culture - Preliminary NO GROWTH AT 48 HOURS Laboratory Tests 11/12/17 11/12/17 11/12/17 05:50 06:06 06:38 WBC 14.6 H Hgb 13.0 L Neutrophils % (Manual) 81 H Potassium 9.2 H* Creatinine 20.78 H Hemoglobin A1c Hep Bs Antigen Non-Reactive 11/12/17 11/13/17 11/13/17 16:14 05:25 05:25 WBC Hgb Neutrophils % (Manual) Potassium 5.2 H Creatinine 11.52 H 7.06 H Hemoglobin A1c 6.2 H Hep Bs Antigen Phys Exam - Physical Examination Constitutional: NAD HEENT: PERRLA, moist MMs, sclera anicteric, oral pharynx no lesions Neck: no nodes, no JVD, supple Respiratory: no wheezing, no rales, no rhonchi, clear to auscultation bilateral Cardiovascular: RRR, no significant murmur, no rub, gallop Gastrointestinal: soft, non-tender, no distention, positive bowel sounds Musculoskeletal: no edema, pulses present Neurological: non-focal, normal sensation, moves all 4 limbs Psychiatric: normal affect, A&O x 3 Skin: no rash, normal turgor, cap refill <2 seconds Deviation from normal: Perales catheter with clear urine Dx/Plan (1) Acute hyperkalemia Code(s): E87.5 - HYPERKALEMIA Status: Acute Comment: Improved after emergent HD, continue serial monitoring on telemetry (2) MATILDE (acute kidney injury) Code(s): N17.9 - ACUTE KIDNEY FAILURE, UNSPECIFIED Status: Acute Comment: s/ p emergent HD, creatinine improving, suspect recovery of renal function with supportive measures, avoid nephrotoxic meds and contrast media, continued improvement with decompression using Perales, follow trend, likely will avoid custodial HD (3) Urinary retention Code(s): R33.9 - RETENTION OF URINE, UNSPECIFIED Status: Acute Comment: s/p decompression with Perales catheter, appreciate Urology assistance, Flomax and Proscar, continue Perales catheter with plans to remove by Urology as outpt (4) Metabolic acidosis Code(s): E87.2 - ACIDOSIS Status: Acute Comment: Improved with correction of MATILDE and metabolic process, continue to monitor trend (5) Lactic acidosis Code(s): E87.2 - ACIDOSIS Status: Acute Comment: Improved, slow recovery given profound MATILDE (6) DM II (diabetes mellitus, type II), controlled Code(s): E11.9 - TYPE 2 DIABETES MELLITUS WITHOUT COMPLICATIONS Status: Chronic Comment: Hgb A1C 6.2, ISS, serial accuchecks - 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
[2017-11-15] MEDS: cloNIDine 0.1 MG TAB PO PRN (16:43)
[2017-11-15] MEDS: HumaLOG 300 UNITS/3 ML VIAL SC PRN (17:04)
--- NOTE | 2017-11-15 18:54 | PRG ---
DATE OF SERVICE: 11/15/2017 NEPHROLOGY PROGRESS NOTE SUBJECTIVE: Patient was seen and examined at bedside and overnight events noted. Patient denies any shortness of breath or chest pain or palpitation. No history of nausea or vomiting or diarrhea or f ever or chills or cramps. OBJECTIVE: GENERAL: This is a well-built male in no apparent distress. VITAL SIGNS: Temperature 98.1, pulse 60, respiratory rate 18, blood pressure 173/80. HEENT: Atraumatic, normocephalic. Oral mucosa is moist. NECK: Supple. CARDIOVASCULAR: S1, S2 heard. Rate and rhythm regular. RESPIRATORY: Clear to auscultation. GASTROINTESTINAL: Abdomen is soft. MUSCULOSKELETAL: No tenderness. No edema. DERMATOLOGIC: No skin rash. NEUROLOGIC: Alert and awake and oriented x3. No focal neurologic deficits. Moving all the extremit ies. PSYCHIATRIC: Mood and affect normal. LABORATORY DATA: Potassium is 3.8, BUN is 23, and creatinine is 1.37. ASSESSMENT AND PLAN: 1. Acute kidney injury on chronic kidney disease, much better. Okay to stop IV fluids and remove di alysis catheter. No need for dialysis. 2. Edema, . 3. Hyperkalemia, . 4. Hypertension, titrate medication. Hold intravenous fluids for now. We will follow.
[2017-11-15] MEDS: Famotidine 20 MG TAB PO SCH (20:46)
[2017-11-16 04:38] LABS: Anion Gap 12 mmol/L (10-20); BUN (Urea Nitrogen) 15 mg/dL (8.4-25.7); Calc. Creatinine Clearance 99 mL/min (70-130); Calcium 8.8 mg/dL (7.8-10.44); Carbon Dioxide 23 mmol/L (23-31); Chloride 104 mmol/L (98-107); Estimated GFR-MDRD 68; Glucose 177 mg/dL (80-115); Sodium 135 mmol/L (136-145)
[2017-11-16] MEDS: cloNIDine 0.1 MG TAB PO PRN (09:29)
[2017-11-16] MEDS: Finasteride 5 MG TAB PO SCH (09:30)
[2017-11-16] MEDS: Tamsulosin HCl 0.4 MG CAP PO SCH (09:30)
[2017-11-16 12:05] VITALS: BP 178/84; TEMP 98.2
--- NOTE | 2017-11-16 14:26 | PRG ---
DATE OF SERVICE: 11/16/2017 SUBJECTIVE: Patient was seen and examined at bedside and overnight events noted. Patient denies any shortness of breath or chest pain or palpitation. No history of nausea or vomiting or diarrhea or f ever or chills or cramps. OBJECTIVE: General: This is a well-built male in no apparent distress. Vital Signs: Temperature 98.2, pulse 80, respirations 18, blood pressure 178/84. HEENT: Atraumatic, normocephalic, Oral mucosa is moist. Neck: Supple. Cardiovascular: S1 and S2 heard. Rate and rhythm regular. Respiratory: Clear to auscultation. Gastrointestinal: Abdomen is soft. Musculoskeletal: No tenderness. No edema. Dermatologic: No skin rash. Neurologic: Alert and awake and oriented X3. No focal neurologic deficits. Moving all the extremities . Psychiatric: Mood and affect normal. LABORATORY DATA: Potassium is 4.0, BUN is 15, creatinine is 1.1. ASSESSMENT AND PLAN: 1. Acute kidney injury on chronic kidney stage 2, renal function is much better, most likely site of the obstruction. 2. Urinary obstruction. Follow up with Urology. 3. Edema, controlled. 4. Hyperkalemia, much better. 5. Hypertension, stable. 6. Okay to discharge home, need a titration of blood pressure medications and patient was advised to follow up with the Nephrology Clinic in 1-2 weeks with all his medications and a BMP before visit. Family is aware and his daughter is also aware of the plan.
--- NOTE | 2017-11-16 21:42 | DIS ---
DATE OF ADMISSION: 11/12/2017 DATE OF DISCHARGE: 11/16/2017 DISCHARGE DIAGNOSES: 1. Acute kidney injury. 2. Hyperkalemia. 3. Urinary retention. 4. Diabetes. HOSPITAL COURSE: The patient is a very pleasant 62-year-old male, who initially presented to the [facility] and was found to have potassium of 9.2 and creatinine of 20.78. The patient at that time was f ound to have urinary obstruction secondary to benign prostatic hypertrophy. A Martin was inserted and also the patient underwent urgent hemodialysis. Nephrology was consulted, so was Urology. The juan ent's potassium improved and on discharge was 4.0 and his creatinine was 1.10. The patient will foll ow up with Urology and Nephrology as an outpatient. The patient also went home with Martin catheter a nd we will follow up with Urology for his removal of the Martin catheterization. He was also started on Flomax and on Proscar. PHYSICAL EXAMINATION: VITAL SIGNS: Temperature of 98.1, pulse 77, respiratory rate 18, blood pressure 178/84, and oxygen s aturation 98% room air. GENERAL: He is awake, alert and oriented x3, does not appear in distress. CARDIOVASCULAR: S1, S2 present. No murmurs, rubs or gallops. ABDOMEN: Soft, nontender, bowel sounds present x2. EXTREMITIES: No edema noted. ABDOMEN: Soft, nontender. Bowel sounds are present x2. DISCHARGE MEDICATIONS: As the followin. Finasteride 5 mg p.o. daily. 2. Metformin 500 mg p.o. b.i.d. 3. Flomax 0.4 mg daily. 4. Lisinopril 20 mg p.o. b.i.d. 5. Levaquin 500 mg daily. 6. Amlodipine 5 mg daily.
== END 2017-11-16 11:15 | disposition home or self-care (01) | DRG 683 ==
LOC: ERS 05:30 → CCU 06:17 → SJJU 11-14 12:24
PROVIDERS: ADMIT Hospitalist; ATTEND Hospitalist
PROC: 06HM33Z Insertion of Infusion Device into Right Femoral Vein, Percutaneous Approach (ICD-10-PCS; principal; 2017-11-13)
DX: N17.9 Acute kidney failure, unspecified (principal); E87.2 Acidosis; E11.22 Type 2 diabetes mellitus with diabetic chronic kidney disease; N13.8 Other obstructive and reflux uropathy; N40.1 Benign prostatic hyperplasia with lower urinary tract symptoms; E87.5 Hyperkalemia; R33.8 Other retention of urine; I12.9 Hypertensive chronic kidney disease with stage 1 through stage 4 chronic kidney disease, or unspecified chronic kidney disease; N18.9 Chronic kidney disease, unspecified; F17.210 Nicotine dependence, cigarettes, uncomplicated; E78.5 Hyperlipidemia, unspecified; Z91.19 Patient's noncompliance with other medical treatment and regimen; Z79.899 Other long term (current) drug therapy; Z79.84 Long term (current) use of oral hypoglycemic drugs
CPT/HCPCS: 36415; 36416; 36556; 51702; 71045; 76770; 80048; 80053; 81003; 81015; 82553; 83036; 83605; 83690; 83880; 84484; 85007; 85025; 85027; 87040; 87077; 87086; 87186; 87340; 90935; 90945; 93005; 93306; 93970; 96361; 96374; 96375; 96376; A4216; C1752; G0257; G0365; J0360; J1642; J1644; J1815; J2001; J2543; J7050

== ENCOUNTER 2018-04-20 11:42 | Outpatient (CLI) | payer OTHER ==
[2018-04-20 12:39] LABS: Hemoglobin 13.8 g/dL (14.0-18.0); Mean Corpuscular HGB CONC 33.2 g/dL (32.0-36.0); Mean Corpuscular Hemoglobin 31.3 pg (27.0-31.0); Mean Corpuscular Volume 94.3 fL (78.0-98.0); Mean Platelet Volume 9.1 fL (7.4-10.4); Platelet Count 248 thou/uL (130-400); RBC Distribution Width 13.1 % (11.5-14.5); Red Blood Cell (RBC) Count 4.39 mill/uL (4.70-6.10)
[2018-04-20 13:02] LABS: Anion Gap 11 mmol/L (10-20); BUN (Urea Nitrogen) 17 mg/dL (8.4-25.7); Calc. Creatinine Clearance 0 mL/min (70-130); Calcium 9.6 mg/dL (7.8-10.44); Carbon Dioxide 28 mmol/L (23-31); Chloride 103 mmol/L (98-107); Estimated GFR-MDRD 90; Glucose 103 mg/dL (80-115); Potassium 4.1 mmol/L (3.5-5.1); Sodium 138 mmol/L (136-145)
== END 2018-04-20 11:43 | disposition home or self-care (01) ==
LOC: LABBT 11:42
PROVIDERS: ATTEND Urology
DX: Z01.812 Encounter for preprocedural laboratory examination (principal); N40.1 Benign prostatic hyperplasia with lower urinary tract symptoms; R33.9 Retention of urine, unspecified; N39.0 Urinary tract infection, site not specified; N45.1 Epididymitis; R82.99 Other abnormal findings in urine
CPT/HCPCS: 80048; 85027

== ENCOUNTER 2018-04-28 05:40 | Day surgery (SDC) | payer OTHER, SELFPAY ==
[2018-04-20 12:09] VITALS: BMI 27.6
[2018-04-28] MEDS ORDERED: Dexamethasone 4 mg/ml Vial ONE (06:50)
[2018-04-28] MEDS ORDERED: Fentanyl 100 MCG/2 ML VIAL ONE ×4 (06:58→10:45)
[2018-04-28] MEDS ORDERED: Famotidine/PF 20 mg/2ml Vial ONE (06:59)
[2018-04-28] MEDS ORDERED: cefTRIAXone\\ROCEPHIN 2 GM in Sodium Chloride 0.9% 100 ML IVPB SCH (07:00)
[2018-04-28] MEDS ORDERED: Furosemide 20 MG/2 ML VIAL ONE (07:28)
[2018-04-28] MEDS ORDERED: B & O 30 MG SUPP ONE (07:28)
--- NOTE | 2018-04-28 10:34 | CT ---
HEAD CT WITHOUT CONTRAST: History: Recent fall. Comparison: 05-02-17 FINDINGS: No parenchymal hemorrhage. No extraaxial hematoma. No midline shift. Basilar cisterns are patent. Bra in volume is age appropriate. Cortical huitron white matter differentiation is preserved. The ventricles and sulci are patent and symmetric. Calvarium is intact. Mild mucosal thickening in the paranasal sinuses. Adequate mastoid air cell aera tion. IMPRESSION: 1. No acute intracranial process. 2. No intracranial post-traumatic sequellae. POS: NASIMH
--- NOTE | 2018-04-28 10:41 | OP ---
DATE OF PROCEDURE: 04/28/2018 PREOPERATIVE DIAGNOSES: Benign prostatic hypertrophy, retention, prior renal failure. POSTOPERATIVE DIAGNOSES: Benign prostatic hypertrophy, retention, prior renal failure. PROCEDURE: GreenLight laser vaporization of the prostate with enucleation of all three lobes, middle and lateral. SURGEON: Kristy Obrien M.D. ANESTHESIA: General with endotracheal tube. SPECIMEN: Prostate. BLOOD LOSS: Minimal. DRAINS REMAININ-[place] 2-way that was turned into a Councill. COMPLICATIONS: None during the case; however, as we were transferring the patient from the cysto bed to his stretcher, he did fall to the floor, partially held until approximately about 6 inches from the ground, where his bottom did hit and then his head hit. Anesthesia was holding his head the whole time until approximately 3-4 inches from the floor where it did hit and was cushioned by the pillow that still remained under his head at that time. At this point, we kept him asleep and got a sheet under him. We lifted him from the floor to the stretcher and fully examined him from his head and his back side, there were no abrasions or bruises noted; however, there was a small hematoma or edema on the back portion of his head that was noted. FINDINGS: A total of 421,960 joules were used; good stream was noted when the scope was removed. INDICATIONS: The patient is a 62-year-old male who had been previously admitted with acute renal failure secondary to bladder outlet obstruction and dialyzed during that stay, but ultimately his kidney function returned to normal. He was still unable to void, learned CIC, and over that ensuing time period has been able to void more and cath less. He presents for definitive therapy for his prostate. PROCEDURE IN DETAIL: The patient was brought into the room by Anesthesia, laid on the table in supine position. After receiving general anesthetic the patient was placed in lithotomy position. Perineum was prepped and draped in sterile fashion. Using a 22.5 [place] scope and 30-degree lens, urethra was traversed and the bladder inspected. The ureteral orifices were identified and preserved throughout the case. They were far enough away from the bladder neck. Power of 80 was used at the bladder neck and there was a relatively small middle lobe, but this was still enucleated to get it flat to the floor and then a power of 80 was used at the bladder neck and veru. A power of 180 was used for the rest of the prostate, including enucleating the large lateral lobes. This was taken all the way down to the veru. All the chips were evacuated out. All the chips were evacuated out and sent for specimen. With the bladder decompressed hemostasis was ensured with a power of 80 to paint the prostatic bed. When the scope was removed, a good stream was noted. Scope was put back in and hemostasis ensured again and then since the bladder neck was a little bit thinned, a wire was left in place. The scope removed and then a 20-[place] Councill catheter placed to gravity with the wire removed, it was then secured and attached to the patient's leg for gravity. At this point, he was repositioned supine and the bed transfer occurred. Please see the prior incident report related to that. In the PACU, the patient woke up as anticipated, was moving all extremities, was complaining of just burning and irritation from the catheter and lower abdomen standpoint, but denied any head pain. We will proceed with a head CT scan just to ensure there was no further complications. RAJAN
[2018-04-28] MEDS ORDERED: Glycopyrrolate 0.2 MG/ML 5 ML SYRINGE ONE (13:43)
[2018-04-28] MEDS ORDERED: Ondansetron HCl/PF 4 MG/2 ML Vial ONE (13:43)
[2018-04-28] MEDS ORDERED: PROPOFOL 200 MG/20 ML VIAL ONE (13:43)
[2018-04-28] MEDS ORDERED: Lidocaine 1% PF 5 ML VIAL ONE (13:43)
[2018-04-28] MEDS ORDERED: ePHEDrine/0.9% NaCl/PF SYRINGE 50 mg/10 ml ONE (13:43)
== END 2018-04-28 12:30 | disposition home or self-care (01) ==
LOC: SDC 05:40
PROVIDERS: ATTEND Urology
PROC: 0V508ZZ Destruction of Prostate, Via Natural or Artificial Opening Endoscopic (ICD-10-PCS; principal; 2018-04-28)
DX: N40.1 Benign prostatic hyperplasia with lower urinary tract symptoms (principal); R33.8 Other retention of urine; R35.0 Frequency of micturition; R35.1 Nocturia; I10 Essential (primary) hypertension; F17.210 Nicotine dependence, cigarettes, uncomplicated; E11.9 Type 2 diabetes mellitus without complications; N45.1 Epididymitis; S00.93XA Contusion of unspecified part of head, initial encounter; Z79.84 Long term (current) use of oral hypoglycemic drugs; Z79.899 Other long term (current) drug therapy; W04.XXXA Fall while being carried or supported by other persons, initial encounter; Y92.239 Unspecified place in hospital as the place of occurrence of the external cause
CPT/HCPCS: 70450; 88305; 96374; J0131; J0696; J1100; J1940; J2001; J2405; J2704; J3010; J7050; S0028